=== PATIENT | female | born 1980 ===

== ENCOUNTER 2023-01-05 11:38 | Outpatient (CLI) | payer OTHER | END 2023-01-05 13:00 | disposition home or self-care (01) | LOC: PRENATAL 11:38 | PROVIDERS: ATTEND Obstetrics & Gynecology Maternal & Fetal Medicine | DX: Z76.1 Encounter for health supervision and care of foundling (principal) ==

== ENCOUNTER 2023-01-30 10:06 | Outpatient (CLI) | payer OTHER | END 2023-01-30 12:22 | disposition home or self-care (01) | LOC: PRENATAL 10:06 | PROVIDERS: ATTEND Obstetrics & Gynecology Maternal & Fetal Medicine | DX: O35.9XX0 Maternal care for (suspected) fetal abnormality and damage, unspecified, not applicable or unspecified (principal); O99.210 Obesity complicating pregnancy, unspecified trimester; O35.3XX0 Maternal care for (suspected) damage to fetus from viral disease in mother, not applicable or unspecified; O09.529 Supervision of elderly multigravida, unspecified trimester; Z3A.22 22 weeks gestation of pregnancy ==

== ENCOUNTER 2023-04-13 08:30 | Outpatient (CLI) | payer OTHER | END 2023-04-13 09:35 | disposition home or self-care (01) | LOC: PRENATAL 08:30 | PROVIDERS: ATTEND Obstetrics & Gynecology Maternal & Fetal Medicine | DX: O26.849 Uterine size-date discrepancy, unspecified trimester (principal); O36.8199 Decreased fetal movements, unspecified trimester, other fetus; O09.529 Supervision of elderly multigravida, unspecified trimester; O99.210 Obesity complicating pregnancy, unspecified trimester; Z3A.33 33 weeks gestation of pregnancy ==

== ENCOUNTER 2023-05-21 14:00 | Inpatient (IN) | payer OTHER ==
[~2023-05-21] VITALS: Ht 160 cm; Wt 102.5 kg
[2023-06-05] MEDS ORDERED: PRENATAL CAPLE1 EAC1 PO (09:57)
== END 2023-06-07 16:26 | disposition home or self-care (01) | DRG 807 ==
LOC: OB/GYN 05-30 14:00 → LDR 06-05 06:40 → OB/GYN 06-05 16:52
PROVIDERS: ADMIT Obstetrics & Gynecology; ATTEND Obstetrics & Gynecology
PROC: 10E0XZZ Delivery of Products of Conception, External Approach (ICD-10-PCS; principal; 2023-06-05)
PROC: 0KQM0ZZ Repair Perineum Muscle, Open Approach (ICD-10-PCS; 2023-06-05)
PROC: 4A1HXCZ Monitoring of Products of Conception, Cardiac Rate, External Approach (ICD-10-PCS; 2023-06-05)
DX: O70.1 Second degree perineal laceration during delivery (principal); Z37.0 Single live birth; Z3A.40 40 weeks gestation of pregnancy; Z20.822 Contact with and (suspected) exposure to COVID-19